=== PATIENT | male | born 1955 | race Caucasian/White ===

== ENCOUNTER 2023-07-15 08:28 | Emergency (ER) | payer OTHER ==
[~2023-07-15] VITALS: Ht 172.7 cm; Wt 73.0 kg
[2023-07-15 08:39] VITALS: TEMP 98; O2SAT 100
[2023-07-15] MEDS ORDERED: SODIUM CHLORIDE 0.9% 1,000 ML IV ONE (10:00)
[2023-07-15 10:37] LABS: CHLORIDE 102 mEq/L (98-107); INDEX HEMOLYSI 1 (1-3); INDEX ICTERIC 1 (1-4); INDEX LIPEMIC 1 (1-3); POTASSIUM 4.6 mEq/L (3.5-5.1); SODIUM 132 mEq/L (136-145)
[2023-07-15 10:47] LABS: BASOPHILS % 0.9 % (0.0-2.0); EOSINOPHILS % 2.7 % (0.0-5.0); HEMATOCRIT. 35.7 % (42.0-52.0); HEMOGLOBIN. 11.7 g/dL (14.0-18.0); LYMPHOCYTES % 23.9 % (20.0-50.0); MEAN CORPUSCULAR HEMOGLOBIN 28.6 pg (28.0-32.0); MEAN CORPUSCULAR HGB CONC 32.6 g/dL (31.0-37.0); MEAN CORPUSCULAR VOLUME 87.8 fL (80.0-94.0); MEAN PLATELET VOLUME 9.9 fl (7.4-10.4); MONOCYTES % 8.3 % (2.0-8.0); NEUTROPHILS % 64.2 % (40.0-76.0); PLATELET 191 x1000/uL (130-400); RED BLOOD CELL COUNT 4.07 mill/uL (4.7-6.1); RED CELL DISTRIBUTION WIDTH 14.7 % (11.6-14.6); WHITE BLOOD COUNT 5.8 x1000/uL (4.5-11.0)
[2023-07-15 10:55] LABS: ALANINE AMINOTRANSFERASE 22 IU/L (13-61); ALBUMIN 3.7 g/dL (3.4-5.0); ASPARTATE AMINOTRANSFERASE 21 IU/L (15-37); BILIRUBIN TOTAL 0.6 mg/dL (0.1-1.0); CALCIUM 9.3 mg/dL (8.5-10.1); CARBON DIOXIDE 22 mEq/L (21-32); CREATININE 1.7 mg/dL (0.6-1.3); ETHANOL BLOOD < 10 mg/dL (-10); GLUCOSE 249 mg/dL (70-105); PROTEIN TOTAL 7.7 g/dL (6.0-8.3); PROTHROMBIN TIME 10.5 sec (9.6-11.0); THYROID STIMULATING HORMONE 0.52 uIU/mL (0.36-3.74); TROPONIN I HIGH SENSITIVITY 7 ng/L (<78); UREA NITROGEN BLOOD 41 mg/dL (7-21)
[2023-07-15 12:12] LABS: TROPONIN I HIGH SENSITIVITY 11 ng/L (<78)
[2023-07-15 12:48] LABS: CLARITY URINE CLEAR (CLEAR); COLOR URINE YELLOW (YELLOW); GLUCOSE URINE 3+ (NEGATIVE); KETONES URINE NEGATIVE (NEGATIVE); LEUKOCYTE ESTERASE URINE NEGATIVE (NEGATIVE); NITRITE URINE NEGATIVE (NEGATIVE); OCCULT BLOOD URINE TRACE (NEGATIVE); PROTEIN URINE 1+ (NEGATIVE); SPECIFIC GRAVITY URINE 1.015 (1.005-1.030); UROBILINOGEN URINE 0.2 E.U./dL (0.2-1.0)
[2023-07-15] MEDS ORDERED: METF-414 MT (12:52)
[2023-07-15 12:59] LABS: SQUAMOUS EPITHELIAL CELL URINE RARE /lpf (RARE/1+); URIC ACID CRYSTALS URINE 1+ /lpf
[2023-07-15 13:00] LABS: BACTERIA URINE NONE SEEN; RBC URINE 0-2 /hpf (0-2)
[2023-07-15 13:01] LABS: WBC URINE NONE SEEN /hpf (0-2)
[2023-07-15 13:26] LABS: *AMPHETAMINES SCREEN URINE NEGATIVE (NEGATIVE); *BARBITURATES SCREEN URINE NEGATIVE (NEGATIVE); *BENZODIAZEPINES SCREEN URINE NEGATIVE (NEGATIVE); *COCAINE SCREEN URINE NEGATIVE (NEGATIVE); CANNABINOID URINE SCREEN NEGATIVE (NEGATIVE); ECSTASY MDMA SCREEN URINE NEGATIVE (NEGATIVE); METHADONE URINE SCREEN NEGATIVE (NEGATIVE); OPIATES URINE SCREEN NEGATIVE (NEGATIVE); PHENCYCLIDINE URINE SCREEN NEGATIVE (NEGATIVE)
[2023-07-15 13:55] VITALS: BP 142/52; PULSE 96; RESP 16
== END 2023-07-15 13:56 | disposition home or self-care (01) ==
LOC: EDBD 08:28 → ER 08:28
DX: R41.82 Altered mental status, unspecified (principal)
CPT/HCPCS: 80053; 80305; 81003; 80320; 82962; 84443; 85025; 85610; 84484; 36415; 71045; 70450; 96360; 99285; J7030; G0480